=== PATIENT | male | born 1980 | race Two or more races ===

== ENCOUNTER 2020-09-13 18:29 | Emergency (ER) | payer SELFPAY ==
[~2020-09-13] VITALS: Ht 172.7 cm; Wt 68.0 kg
[2020-09-13 18:36] VITALS: BP 134/66
== END 2020-09-13 18:53 | disposition left against medical advice (07) ==
LOC: ER 18:29
DX: T40.601A Poisoning by unspecified narcotics, accidental (unintentional), initial encounter (principal); Y92.488 Other paved roadways as the place of occurrence of the external cause
CPT/HCPCS: 99283